=== PATIENT | female | born 1960 | race Asian ===

== ENCOUNTER 2022-02-15 16:41 | Emergency (ER) | payer OTHER ==
[~2022-02-15] VITALS: Ht 160 cm; Wt 69.8 kg
[2022-02-15 17:37] LABS: Albumin, Blood 3.9 g/dL (3.4-5.0); Albumin/Globulin Ratio 1.1 (0.8-1.8); Bilirubin, Total 0.7 mg/dL (0.1-1.0); Bun/Creatinine Ratio 28.1 (12.0-20.0); Calcium, Blood 8.9 mg/dL (8.5-10.1); Creatinine, Blood 0.61 mg/dL (0.40-1.00); Globulin, Blood 3.4 g/dL (2.2-4.0); Potassium, Blood 4.2 mmol/L (3.5-5.5); Total Protein, Blood 7.3 g/dL (6.4-8.2)
[2022-02-15] MEDS ORDERED: Cyclobenzaprine5 MG PO (18:23)
[2022-02-15] MEDS ORDERED: CELE100 PO (18:23)
[2022-02-15] MEDS ORDERED: TOPROL XL50 M1 PO (18:24)
[2022-02-15] MEDS ORDERED: VERAPAMIL ER120 M1 PO (18:24)
[2022-02-15] MEDS ORDERED: ATORVASTATIN CA20 MG PO (18:25)
[2022-02-15] MEDS ORDERED: LOSARTAN POTASS25 M2 PO (18:25)
[2022-02-15 18:54] LABS: BASOPHILS ABSOLUTE AUTO 0.01 K/mm3 (0.00-0.23); BASOPHILS PERCENT AUTO 0 % (0-2); EOSINOPHILS ABSOLUTE AUTO 0.06 K/mm3 (0.00-0.68); EOSINOPHILS PERCENT AUTO 1 % (0-6); Hematocrit 45.2 % (33.0-51.0); Hemoglobin 15.9 g/dL (11.5-16.0); IMMATURE GRAN ABSOLUTE AUTO 0.04 K/mm3 (0.00-0.10); IMMATURE GRAN PERCENT AUTO 0 % (0-1); LYMPHOCYTES ABSOLUTE AUTO 0.41 K/mm3 (0.84-5.20); LYMPHOCYTES PERCENT AUTO 4 % (21-46); MONOCYTES ABSOLUTE AUTO 0.34 K/mm3 (0.16-1.47); MONOCYTES PERCENT AUTO 3 % (4-13); Mean Corpuscular HGB 30.1 pg (26.0-34.0); Mean Corpuscular HGB Conc 35.2 g/dL (31.5-36.5); Mean Corpuscular Volume 85 fL (80-100); Mean Platelet Volume 10.6 fL (9.1-12.4); NEUTROPHILS PERCENT AUTO 93 % (41-73); Platelet Count 215 K/mm3 (150-400); RDW Coefficient Variation 12.6 % (11.7-14.2); RDW Standard Deviation 39.2 fL (35.1-46.3); Red Blood Cell Count 5.29 M/mm3 (3.80-5.20); White Blood Cell Count 11.66 K/mm3 (4.00-11.30)
[2022-02-15] MEDS ORDERED: SUCR1 PO (19:31)
[2022-02-15] MEDS ORDERED: ESOM20 PO (19:31)
== END 2022-02-15 19:44 | disposition home or self-care (01) ==
LOC: ER 16:41
PROVIDERS: Physician Assistant
DX: R10.13 Epigastric pain (principal); I10 Essential (primary) hypertension; Z88.8 Allergy status to other drugs, medicaments and biological substances; Z88.5 Allergy status to narcotic agent; Z79.899 Other long term (current) drug therapy
CPT/HCPCS: 36415; 71045; 80053; 83690; 83880; 84484; 85025; 93005; 93010; 99284-25; A9270

== ENCOUNTER 2022-03-31 11:59 | Day surgery (SDC) | payer OTHER ==
[~2022-03-31] VITALS: Ht 160 cm; Wt 69.5 kg
[~2022-03-31 11:59] MED LIST: ATORVASTATIN CA20 MG PO; CELE100 PO; Cyclobenzaprine5 MG PO; ESOM20 PO; LOSARTAN POTASS25 M2 PO; SUCR1 PO; TOPROL XL50 M1 PO; VERAPAMIL ER120 M1 PO
--- NOTE | 2022-03-31 12:52 | NUR ---
03/31/22 1252 MARIA DE JESUS LEBLANC WATCH PLACED IN COAT POCKET IN PRE OP T: P:
[2022-03-31] MEDS ORDERED: HYDCHL25 PO (12:55)
--- NOTE | 2022-03-31 14:37 | NUR ---
03/31/22 [id number] Loretta Garcia PT COMPLAINED OF NAUSEA AND HAD A BRIEF PERIOD OF DRY HEAVING. PT DID NOT HAVE EMESIS. RN NOTIFIED DR SALES. CBG CHECKED (RESULTS 117) AND ODT ZOFRAN ADMINISTERED PER 'S ORDERS. PT IS NOW RESTING WITH EYES CLOSED. AT CHAIRSIDE. WASH CLOTH PROVIDED.
== END 2022-03-31 15:19 | disposition home or self-care (01) ==
LOC: ORSCSDS 11:59
PROVIDERS: Ophthalmology
PROC: 08RJ3JZ Replacement of Right Lens with Synthetic Substitute, Percutaneous Approach (ICD-10-PCS; principal; 2022-03-31 13:30)
DX: H25.11 Age-related nuclear cataract, right eye (principal); H52.201 Unspecified astigmatism, right eye; I10 Essential (primary) hypertension; E78.5 Hyperlipidemia, unspecified; Z79.899 Other long term (current) drug therapy
CPT/HCPCS: 82947; A9270; J2001; J2250; J3010; J3301; J7120; V2632

== ENCOUNTER 2022-04-14 09:15 | Day surgery (SDC) | payer OTHER ==
[~2022-04-14] VITALS: Ht 160 cm; Wt 69.7 kg
[~2022-04-14 09:15] MED LIST changes: +HYDCHL25 PO
--- NOTE | 2022-04-14 09:55 | NUR ---
PT HAD NAUSEA AND VOMITING FOR 10 HOURS AFTER LAST CATARACT PROCEEDURE 03/31/22. DR. CHANEY AND DR. PADILLA ARE AWARE
--- NOTE | 2022-04-14 09:56 | NUR ---
04/14/22 0956 Antonella Nguyen AT 0948 IMELDAET AT 0936
== END 2022-04-14 10:57 | disposition home or self-care (01) ==
LOC: ORSCSDS 09:15
PROVIDERS: Ophthalmology
PROC: 08DK3ZZ Extraction of Left Lens, Percutaneous Approach (ICD-10-PCS; principal; 2022-04-14 10:30)
DX: H25.12 Age-related nuclear cataract, left eye (principal); H52.202 Unspecified astigmatism, left eye; Z96.1 Presence of intraocular lens; I10 Essential (primary) hypertension; Z79.899 Other long term (current) drug therapy
CPT/HCPCS: 82947; J2001; J2250; J3010; J3301; J7040; V2632

== ENCOUNTER → 2022-07-09 | Outpatient (CLI) | payer OTHER ==
[2022-07-09 13:50] LABS: BASOPHILS ABSOLUTE AUTO 0.03 K/mm3 (0.00-0.23); BASOPHILS PERCENT AUTO 0 % (0-2); EOSINOPHILS ABSOLUTE AUTO 0.04 K/mm3 (0.00-0.68); EOSINOPHILS PERCENT AUTO 1 % (0-6); Hematocrit 42.6 % (33.0-51.0); Hemoglobin 15.1 g/dL (11.5-16.0); IMMATURE GRAN ABSOLUTE AUTO 0.03 K/mm3 (0.00-0.10); IMMATURE GRAN PERCENT AUTO 0 % (0-1); LYMPHOCYTES ABSOLUTE AUTO 1.48 K/mm3 (0.84-5.20); LYMPHOCYTES PERCENT AUTO 20 % (21-46); MONOCYTES ABSOLUTE AUTO 0.38 K/mm3 (0.16-1.47); MONOCYTES PERCENT AUTO 5 % (4-13); Mean Corpuscular HGB 30.4 pg (26.0-34.0); Mean Corpuscular HGB Conc 35.4 g/dL (31.5-36.5); Mean Corpuscular Volume 86 fL (80-100); Mean Platelet Volume 10.5 fL (9.1-12.4); NEUTROPHILS ABSOLUTE AUTO 5.28 K/mm3 (1.96-9.15); NEUTROPHILS PERCENT AUTO 73 % (41-73); Platelet Count 213 K/mm3 (150-400); RDW Coefficient Variation 12.5 % (11.7-14.2); RDW Standard Deviation 38.9 fL (35.1-46.3); Red Blood Cell Count 4.96 M/mm3 (3.80-5.20); White Blood Cell Count 7.24 K/mm3 (4.00-11.30)
[2022-07-09 14:01] LABS: Albumin, Blood 4.2 g/dL (3.4-5.0); Albumin/Globulin Ratio 1.2 (0.8-1.8); Bilirubin, Total 0.6 mg/dL (0.1-1.0); Bun/Creatinine Ratio 18.3 (12.0-20.0); Calcium, Blood 9.4 mg/dL (8.5-10.1); Creatinine, Blood 0.82 mg/dL (0.40-1.00); Globulin, Blood 3.5 g/dL (2.2-4.0); Potassium, Blood 3.5 mmol/L (3.5-5.5); Total Protein, Blood 7.7 g/dL (6.4-8.2)
== END | disposition home or self-care (01) ==
LOC: LAB SHORT 13:44
PROVIDERS: Chiropractor
DX: R10.13 Epigastric pain (principal)
CPT/HCPCS: 80053; 83690; 84484; 85025

== ENCOUNTER 2022-10-08 09:12 | Emergency (ER) | payer OTHER ==
[~2022-10-08] VITALS: Ht 160 cm; Wt 70.8 kg
[2022-10-08 09:42] VITALS: BP 143/76
[2022-10-08] MEDS ORDERED: CEFD300 PO (10:42)
[2022-10-08] MEDS ORDERED: MECL25 PO (10:43)
[2022-10-08] MEDS ORDERED: ONDA4ODT MM (10:51)
== END 2022-10-08 10:59 | disposition home or self-care (01) ==
LOC: ER 09:12
DX: H65.92 Unspecified nonsuppurative otitis media, left ear (principal); B96.89 Other specified bacterial agents as the cause of diseases classified elsewhere; Z88.0 Allergy status to penicillin; Z88.8 Allergy status to other drugs, medicaments and biological substances; Z88.6 Allergy status to analgesic agent; Z79.899 Other long term (current) drug therapy
CPT/HCPCS: A9270

== ENCOUNTER 2023-11-21 12:00 | Day surgery (SDC) | payer OTHER ==
[~2023-11-21] VITALS: Ht 160 cm; Wt 69.0 kg
[~2023-11-21 12:00] MED LIST changes: +CEFD300 PO; +CEPH500 PO; +Lactated Ringer's 1,000 ML IV ONE; +MECL25 PO; +ONDA4ODT MM; +propofoL 50 ML IV ONE
[2023-11-21] MEDS ORDERED: SIME80CH (12:47)
[2023-11-21] MEDS ORDERED: POTA10T (12:47)
[2023-11-21] MEDS ORDERED: MAGNESIUM OXID500 MG (12:47)
[2023-11-21] MEDS ORDERED: Lactated Ringer's 1,000 ML IV ONE (13:04)
[2023-11-21 14:13] VITALS: BP 138/73
== END 2023-11-21 14:20 | disposition home or self-care (01) ==
LOC: ORSCSDS 12:00
PROVIDERS: Surgery
PROC: 0DBK8ZX Excision of Ascending Colon, Via Natural or Artificial Opening Endoscopic, Diagnostic (ICD-10-PCS; principal; 2023-11-21 13:00)
PROC: 0DBM8ZX Excision of Descending Colon, Via Natural or Artificial Opening Endoscopic, Diagnostic (ICD-10-PCS; principal; 2023-11-21 13:00)
DX: K62.5 Hemorrhage of anus and rectum (principal); D12.2 Benign neoplasm of ascending colon; D12.4 Benign neoplasm of descending colon; K64.4 Residual hemorrhoidal skin tags; K64.8 Other hemorrhoids; E11.9 Type 2 diabetes mellitus without complications; I10 Essential (primary) hypertension; E78.00 Pure hypercholesterolemia, unspecified; Z79.899 Other long term (current) drug therapy
CPT/HCPCS: 82947; 88305; J2704; J7120

== ENCOUNTER 2024-07-07 23:13 | Emergency (ER) | payer OTHER ==
[~2024-07-07] VITALS: Ht 160 cm; Wt 70.3 kg
[~2024-07-07 23:13] MED LIST changes: -Lactated Ringer's 1,000 ML IV ONE; +MAGNESIUM OXID500 MG; +POTA10T; +SIME80CH; -propofoL 50 ML IV ONE
[2024-07-07 23:46] LABS: BASOPHILS ABSOLUTE AUTO 0.01 K/mm3 (0.00-0.23); BASOPHILS PERCENT AUTO 0 % (0-2); EOSINOPHILS PERCENT AUTO 0 % (0-6); Hematocrit 46.2 % (33.0-51.0); Hemoglobin 15.8 g/dL (11.5-16.0); IMMATURE GRAN ABSOLUTE AUTO 0.02 K/mm3 (0.00-0.10); IMMATURE GRAN PERCENT AUTO 0 % (0-1); LYMPHOCYTES ABSOLUTE AUTO 1.09 K/mm3 (0.84-5.20); LYMPHOCYTES PERCENT AUTO 19 % (21-46); MONOCYTES ABSOLUTE AUTO 0.73 K/mm3 (0.16-1.47); MONOCYTES PERCENT AUTO 13 % (4-13); Mean Corpuscular HGB 29.9 pg (26.0-34.0); Mean Corpuscular HGB Conc 34.2 g/dL (31.5-36.5); Mean Corpuscular Volume 88 fL (80-100); Mean Platelet Volume 11.1 fL (9.1-12.4); NEUTROPHILS ABSOLUTE AUTO 3.77 K/mm3 (1.96-9.15); NEUTROPHILS PERCENT AUTO 67 % (41-73); Platelet Count 180 K/mm3 (150-400); RDW Coefficient Variation 12.7 % (11.7-14.2); RDW Standard Deviation 40.6 fL (35.1-46.3); Red Blood Cell Count 5.28 M/mm3 (3.80-5.20); White Blood Cell Count 5.62 K/mm3 (4.00-11.30)
[2024-07-08] LABS: Bilirubin, Total 0.5 mg/dL (0.1-1.0); Bun/Creatinine Ratio 21.1 (12.0-20.0); Creatinine, Blood 0.9 mg/dL (0.40-1.00); Globulin, Blood 3.9 g/dL (2.2-4.0); Potassium, Blood 3.9 mmol/L (3.5-5.5); Total Protein, Blood 7.9 g/dL (6.4-8.2)
[2024-07-08 00:30] LABS: Influenza A, PCR NEGATIVE (NEGATIVE); Influenza B, PCR NEGATIVE (NEGATIVE); Resp Syncytial Virus, PCR NEGATIVE (NEGATIVE)
[2024-07-08 00:48] LABS: SARS-Cov-2 (COVID-19) PCR, MMC POSITIVE (NEGATIVE)
[2024-07-08] MEDS ORDERED: Benzonatate 100 MG Cap PO ONE (01:25)
[2024-07-08 05:30] VITALS: BP 104/61
[2024-07-08] MEDS ORDERED: BENZ100A PO (05:51)
== END 2024-07-08 06:00 | disposition home or self-care (01) ==
LOC: ER 23:13
PROVIDERS: Student in an Organized Health Care Education/Training Program
DX: U07.1 COVID-19 (principal); E04.1 Nontoxic single thyroid nodule; I10 Essential (primary) hypertension; K21.9 Gastro-esophageal reflux disease without esophagitis; Z88.0 Allergy status to penicillin; Z88.6 Allergy status to analgesic agent; Z88.8 Allergy status to other drugs, medicaments and biological substances; Z88.5 Allergy status to narcotic agent; Z91.040 Latex allergy status; Z79.899 Other long term (current) drug therapy
CPT/HCPCS: 0241U; 71046; 71260; 80053; 84484; 85025; 85379; 93005; 93010; 99285-25; A9270; Q9967

== ENCOUNTER 2024-12-31 23:04 | Emergency (ER) | payer OTHER ==
[~2024-12-31] VITALS: Ht 160 cm; Wt 67.6 kg
[~2024-12-31 23:04] MED LIST changes: +BENZ100A PO
[2024-12-31 23:32] LABS: BASOPHILS ABSOLUTE AUTO 0.02 K/mm3 (0.00-0.23); BASOPHILS PERCENT AUTO 0 % (0-2); EOSINOPHILS ABSOLUTE AUTO 0.17 K/mm3 (0.00-0.68); EOSINOPHILS PERCENT AUTO 3 % (0-6); Hematocrit 38.9 % (33.0-51.0); Hemoglobin 13.4 g/dL (11.5-16.0); IMMATURE GRAN ABSOLUTE AUTO 0.02 K/mm3 (0.00-0.10); IMMATURE GRAN PERCENT AUTO 0 % (0-1); LYMPHOCYTES ABSOLUTE AUTO 2.42 K/mm3 (0.84-5.20); LYMPHOCYTES PERCENT AUTO 42 % (21-46); MONOCYTES ABSOLUTE AUTO 0.48 K/mm3 (0.16-1.47); MONOCYTES PERCENT AUTO 8 % (4-13); Mean Corpuscular HGB Conc 34.4 g/dL (31.5-36.5); Mean Corpuscular Volume 87 fL (80-100); NEUTROPHILS ABSOLUTE AUTO 2.61 K/mm3 (1.96-9.15); NEUTROPHILS PERCENT AUTO 46 % (41-73); NRBC ABSOLUTE 0.00 K/mm3 (0.00-0.02); NRBC Auto 0.0 /100 WBC (0.0-0.2); Platelet Count 178 K/mm3 (150-400); RDW Coefficient Variation 12.6 % (11.7-14.2); RDW Standard Deviation 39.9 fL (35.1-46.3)
[2025-01-01] LABS: Alanine Aminotransfer (ALT/SGP 30.0 U/L (12-78); Albumin, Blood 3.5 g/dL (3.4-5.0); Albumin/Globulin Ratio 1.0 (0.8-1.8); Anion Gap 8.0 mmol/L (3-11); Aspartate Aminotrans (AST/SGOT 19.0 U/L (12-37); Bilirubin, Total 0.4 mg/dL (0.1-1.0); Blood Urea Nitrogen 16.0 mg/dL (8-24); CO2, Blood 27.0 mmol/L (21-32); Calcium, Blood 8.8 mg/dL (8.5-10.1); Chloride, Blood 110.0 mmol/L (98-108); Creatinine, Blood 0.86 mg/dL (0.40-1.00); Globulin, Blood 3.4 g/dL (2.2-4.0); Glucose, Blood 145.0 mg/dL (70-99); Potassium, Blood 3.7 mmol/L (3.5-5.5); Sodium, Blood 141.0 mmol/L (136-145); Total Protein, Blood 6.9 g/dL (6.4-8.2)
[2025-01-01 03:00] VITALS: BP 116/72
== END 2025-01-01 04:03 | disposition home or self-care (01) ==
LOC: ER 23:04
PROVIDERS: Emergency Medicine
DX: R07.89 Other chest pain (principal); I10 Essential (primary) hypertension; K21.9 Gastro-esophageal reflux disease without esophagitis; Z88.0 Allergy status to penicillin; Z88.6 Allergy status to analgesic agent; Z88.2 Allergy status to sulfonamides; Z88.1 Allergy status to other antibiotic agents; Z88.5 Allergy status to narcotic agent; Z91.040 Latex allergy status; Z88.8 Allergy status to other drugs, medicaments and biological substances; Z79.899 Other long term (current) drug therapy
CPT/HCPCS: 71046; 80053; 84484; 85025; 85379; 93005; 93010; 99285-25